=== PATIENT | female | born 1990 | race African-American/Black ===

== ENCOUNTER 2017-09-29 11:06 | Emergency (ER) | payer SELFPAY ==
[~2017-09-29] VITALS: Ht 165.1 cm; Wt 50.0 kg
[2017-09-29 11:09] VITALS: BP 121/89; PULSE 87; RESP 12; TEMP 97.9; O2SAT 100
--- NOTE | 2017-09-29 11:27 | PD ---
HPI Chief Complaint: Abdominal Pain Time Seen by Provider: 11:14 Travel History International Travel<30 days: No Contact w/Intl Traveler<30days: No Traveled to known affect area: No History of Present Illness HPI 26-year-old female presents for evaluation. She reports over the past week she has had pain in her lower abdomen, dysuria, foul-smelling urine, vaginal discharge. Pain is sharp, constant, worse when walking, somewhat improved with ibuprofen. She reports a burning sensation when she urinates as well as white vaginal discharge. Denies any vaginal itching. She is sexually active with one partner. She reports one episode of nausea and vomiting 3 days ago but none since. Denies any fevers, chills, cough, congestion, sore throat. She does report that she has had a toothache for 1 month localized to the right maxillary first premolar. She reports a history of ovarian cysts in the past. No other complaints at this time. PFSH Past Medical History ?: Not LMP: 09/11/17 Social History Alcohol Use: Yes Tobacco Use: Yes Allergies-Medications (Allergen,Severity, Reaction): Coded Allergies: No Known Allergies (Unverified , 09/29/17) Reported Meds & Prescriptions Reported Meds & Active Scripts Active Augmentin (Amoxicillin-Clavulanate) 875-125 Mg Tab 1 Tab PO BID 7 Days Doxycycline Hyclate 100 Mg Cap 100 Mg PO BID Review of Systems Except as stated in HPI: all other systems reviewed are Neg Physical Exam Narrative GENERAL: Well-developed well-nourished female no acute distress SKIN: Warm and dry. HEAD: Atraumatic. Normocephalic. EYES: Pupils equal and round. No scleral icterus. No injection or drainage. ENT: No nasal bleeding or discharge. Dental decay localized to the right maxillary first molar which is tender to percussion. There is mild gingival erythema. NECK: Trachea midline. No JVD. CARDIOVASCULAR: Regular rate and rhythm. No murmur appreciated. RESPIRATORY: No accessory muscle use. Clear to auscultation. Breath sounds equal bilaterally. GASTROINTESTINAL: Abdomen soft, some tenderness to palpation in the left lower quadrant without guarding. No right lower quadrant tenderness. Left CVA tenderness is present as well. Pelvic examination in the presence of a female nurse: There is scant white discharge in the vaginal canal. There is positive cervical motion tenderness. There is left adnexal tenderness without any palpable masses. MUSCULOSKELETAL: No obvious deformities. No edema NEUROLOGICAL: Awake and alert. No obvious cranial nerve deficits. Motor grossly within normal limits. Normal speech. Data Data Last Documented VS Vital Signs Date Time Temp Pulse Resp B/P (MAP) Pulse Ox O2 Delivery O2 Flow Rate FiO2 09/29/17 11:39 18 09/29/17 11:09 97.9 87 121/89 (100) 100 Orders Orders Complete Blood Count With Diff (09/29/17 11:22) Basic Metabolic Panel (Bmp) (09/29/17 11:22) Gc And Chlamydia Pcr (09/29/17 11:22) Wet Prep Profile (09/29/17 11:22) Urinalysis - C+S If Indicated (09/29/17 11:22) Iv Access Insert/Monitor (09/29/17 11:22) Ed Urine Pregnancytest Poc (09/29/17 11:22) Us Pelvis Comp W Doppler (09/29/17 11:38) Ketorolac Inj (Toradol Inj) (09/29/17 11:45) Urine Culture (09/29/17 11:36) Ceftriaxone Inj (Rocephin Inj) (09/29/17 12:30) Ed Discharge Order (09/29/17 12:54) Labs Laboratory Tests Test 09/29/17 11:36 White Blood Count 10.2 TH/MM3 Red Blood Count 4.30 MIL/MM3 Hemoglobin 12.1 GM/DL Hematocrit 37.3 % Mean Corpuscular Volume 86.8 FL Mean Corpuscular Hemoglobin 28.2 PG Mean Corpuscular Hemoglobin Concent 32.5 % Red Cell Distribution Width 14.9 % Platelet Count 190 TH/MM3 Mean Platelet Volume 8.8 FL Neutrophils (%) (Auto) 62.7 % Lymphocytes (%) (Auto) 24.6 % Monocytes (%) (Auto) 11.1 % Eosinophils (%) (Auto) 1.3 % Basophils (%) (Auto) 0.3 % Neutrophils # (Auto) 6.4 TH/MM3 Lymphocytes # (Auto) 2.5 TH/MM3 Monocytes # (Auto) 1.1 TH/MM3 Eosinophils # (Auto) 0.1 TH/MM3 Basophils # (Auto) 0.0 TH/MM3 CBC Comment DIFF FINAL Differential Comment Urine Color YELLOW Urine Turbidity HAZY Urine pH 5.5 Urine Specific [place] 1.019 Urine Protein NEG mg/dL Urine Glucose (UA) NEG mg/dL Urine Ketones 10 mg/dL Urine Occult Blood NEG Urine Nitrite NEG Urine Bilirubin NEG Urine Urobilinogen LESS THAN 2.0 MG/DL Urine Leukocyte Esterase LARGE Urine RBC 4 /hpf Urine WBC 88 /hpf Urine Squamous Epithelial Cells <1 /hpf Urine Bacteria RARE /hpf Urine Mucus FEW /lpf Microscopic Urinalysis Comment CULTURE INDICATED Clue Cells (Wet Prep) NONE SEEN Vaginal Trichomonas (Wet Prep) NONE SEEN Vaginal Yeast (Wet Prep) NONE SEEN Blood Urea Nitrogen 10 MG/DL Creatinine 0.61 MG/DL Random Glucose 85 MG/DL Calcium Level 9.0 MG/DL Sodium Level 138 MEQ/L Potassium Level 3.6 MEQ/L Chloride Level 106 MEQ/L Carbon Dioxide Level 24.4 MEQ/L Anion Gap 8 MEQ/L Estimat Glomerular Filtration Rate 119 ML/MIN MDM Medical Decision Making Medical Screen Exam Complete: Yes Emergency Medical Condition: Yes Medical Record Reviewed: Yes Differential Diagnosis Cystitis, pyelonephritis, pelvic inflammatory disease, vaginitis, tubo-ovarian abscess, ovarian cyst, ovarian torsion, ectopic Narrative Course 26-year-old female with 1 week of dysuria, foul-smelling urine, vaginal discharge, lower abdominal pain. On examination she has mild left CVA tenderness as well as focal tenderness in the suprapubic/left lower quadrant of the abdomen. On pelvic examination she does have positive cervical motion tenderness. Plan is for basic lab work, urinalysis, urine test, ultrasound. Urinalysis reveals large leukocytes, rare bacteria, consistent with urinary tract infection, IV Rocephin initiated. Wet prep is negative. CBC is unremarkable. BMP is unremarkable. CONCLUSION: 1. Complex cyst left ovary measures 5.1 cm. 2. Dominant follicle right ovary. 3. Small amount of pelvic free fluid. I discussed the ultrasound results with the on-call survey engineer who recommends outpatient follow-up in 6 weeks at the [facility] for repeat outpatient ultrasound imaging. Tubo-ovarian abscess is highly unlikely as the patient is not febrile, tachycardic. I discussed the findings with the patient in great detail who verbalizes understanding. She was given a copy of her ultrasound report. She is being treated for her urinary tract infection with Augmentin which will also cover for intraoral jessy in regards to her dental pain. She will be given a 14 day course of doxycycline for potential PID. I discussed signs and symptoms all towards returning to the emergency room. She is stable for discharge. Diagnosis Primary Impression: Urinary tract infection Additional Impressions: Ovarian cyst Pelvic inflammatory disease Referrals: [facility] Additional Instructions: [facility]-up at [facility], likely for repeat outpatient ultrasound imaging. Take all the antibiotics as prescribed. Follow-up with a dentist in regards to the dental pain. Take Tylenol or ibuprofen for pain. If you develop worsening abdominal pain, high fevers, intractable nausea and vomiting, return to the emergency room. Med/Other Pt SpecificInfo: Prescription(s) given Scripts Amoxicillin-Clavulanate (Augmentin) 875-125 Mg Tab 1 TAB PO BID for Infection for 7 Days, #14 TAB 0 Refills Prov: Olesya Galvin MD 09/29/17 Doxycycline Hyclate (Doxycycline Hyclate) 100 Mg Cap 100 MG PO BID for Infection, #28 CAP 0 Refills Prov: Olesya Galvin MD 09/29/17 Disposition: 01 DISCHARGE HOME Condition: Stable Patel Weathers Sep 29, 2017 11:27
[2017-09-29] MEDS ORDERED: KETOROLAC TROMETHAMINE 30 MG/ML (IVP) VIAL IV PUSH ONE (11:45)
[2017-09-29 11:51] LABS: AUTOMATED NEUTROPHIL # 6.4 TH/MM3 (1.8-7.7); BASOPHIL % 0.3 % (0.0-2.0); EOSINOPHIL # 0.1 TH/MM3 (0-0.4); EOSINOPHIL % 1.3 % (0.0-4.0); HEMATOCRIT 37.3 % (35.0-46.0); HEMOGLOBIN 12.1 GM/DL (11.6-15.3); LYMPH % 24.6 % (9.0-44.0); LYMPHOCYTE # 2.5 TH/MM3 (1.0-4.8); MEAN CELL VOLUME 86.8 FL (80.0-100.0); MEAN CORPUSCULAR HEMOGLOBIN 28.2 PG (27.0-34.0); MEAN CORPUSCULAR HGB CONC 32.5 % (32.0-36.0); MEAN PLATELET VOLUME 8.8 FL (7.0-11.0); MONO % 11.1 % (0.0-8.0); MONOCYTE # 1.1 TH/MM3 (0-0.9); NEUT % 62.7 % (16.0-70.0); PLATELET COUNT 190 TH/MM3 (150-450); RED CELL DISTRIBUTION WIDTH 14.9 % (11.6-17.2); WHITE BLOOD COUNT 10.2 TH/MM3 (4.0-11.0)
[2017-09-29 12:09] LABS: BICARBONATE 24.4 MEQ/L (21.0-32.0); CREATININE 0.61 MG/DL (0.50-1.00)
[2017-09-29 12:10] LABS: BACTERIA, URINE RARE /hpf; BILIRUBIN, URINE NEG (NEG); BLOOD, URINE NEG (NEG); GLUCOSE,URINE NEG (NEG); KETONE, URINE 10 mg/dL (NEG); MUCUS URINE FEW /lpf (OCC); NITRITE,URINE NEG (NEG); PH, URINE 5.5 (5.0-8.5); SQUAMOUS EPITHELIAL CELL URINE <1 /hpf (0-5); URINE COLOR YELLOW (YELLW/STRAW); URINE LEUKOCYTE ESTERASE LARGE (NEG)
[2017-09-29] MEDS ORDERED: cefTRIAXone INJ 1,000 MG in SODIUM CHLORIDE 0.9% INJ 100 ML IV ONE (12:30)
--- NOTE | 2017-09-29 12:38 | RADRPT ---
EXAM DATE/TIME: 09/29/2017 12:02 [facility] COMPARISON: No previous studies available for comparison. INDICATIONS : Pelvic pain. MEDICAL HISTORY : None. SURGICAL HISTORY : None. ENCOUNTER: Initial ACUITY: 1 week PAIN SCORE: 9/10 LOCATION: Bilateral pelvis MEASUREMENTS: UTERUS: 9.1 x 6.0 x 4.4 cm ENDOMETRIAL STRIPE: 13 mm RIGHT OVARY: 2.0 x 1.6 x 1.3 cm LEFT OVARY: 4.4 x 6.2 x 4.0 cm FINDINGS: UTERUS: The myometrium has homogeneous echotexture without mass. RIGHT OVARY: Dominant follicle measures 12 x 13 x 10 mm. Normal flow. LEFT OVARY: Complex lesion containing septations and internal echoes measuring 46 x 51 x 47 mm. Normal flow. MISCELLANEOUS: Small amount free fluid. CONCLUSION: 1. Complex cyst left ovary measures 5.1 cm. 2. Dominant follicle right ovary. 3. Small amount of pelvic free fluid. Shade Mckinley MD on September 29, 2017 at 12:35 Board Certified Radiologist. This report was verified electronically.
[2017-09-29] MEDS ORDERED: AUGM875T3 PO (12:49)
[2017-09-29] MEDS ORDERED: DOXY100C PO (12:49)
== END 2017-09-29 13:08 | disposition home or self-care (01) ==
LOC: NEPC 11:06
DX: N39.0 Urinary tract infection, site not specified (principal); B96.20 Unspecified Escherichia coli [E. coli] as the cause of diseases classified elsewhere; N83.202 Unspecified ovarian cyst, left side; N73.9 Female pelvic inflammatory disease, unspecified; R11.2 Nausea with vomiting, unspecified; Z72.0 Tobacco use; Z79.899 Other long term (current) drug therapy
CPT/HCPCS: 76856; 80048; 81001; 84703; 85025; 87077; 87086; 87186; 87210; 87491; 87591; 93975; 96374; 96375; 99284; J0696; J1885

== ENCOUNTER 2017-10-01 17:49 | Emergency (ER) | payer SELFPAY ==
[~2017-10-01] VITALS: Ht 167.6 cm; Wt 50.9 kg
[~2017-10-01 17:49] MED LIST: AUGM875T3 PO; DOXY100C PO
[2017-10-01 17:50] VITALS: BP 152/95; PULSE 90; RESP 16; TEMP 99.4; O2SAT 98
--- NOTE | 2017-10-01 18:10 | PD ---
HPI Chief Complaint: Abnormal Results Time Seen by Provider: 18:07 Travel History International Travel<30 days: No Contact w/Intl Traveler<30days: No Traveled to known affect area: No History of Present Illness HPI 26-year-old female presents to emergency department for gonorrhea. Patient was seen and evaluated and then called by our emergency room staff with results to her PCR test done yesterday. Patient reports vaginal discharge. No significant pain. No fever or chills. No other symptoms at this time. PFSH Past Medical History Medical History: Denies Significant Hx Social History Alcohol Use: Yes Tobacco Use: Yes Allergies-Medications (Allergen,Severity, Reaction): Coded Allergies: No Known Allergies (Unverified , 09/29/17) Reported Meds & Prescriptions Reported Meds & Active Scripts Active Augmentin (Amoxicillin-Clavulanate) 875-125 Mg Tab 1 Tab PO BID 7 Days Doxycycline Hyclate 100 Mg Cap 100 Mg PO BID Review of Systems Except as stated in HPI: all other systems reviewed are Neg Physical Exam Narrative GENERAL: Well-nourished, well-developed female patient in no acute distress. SKIN: Focused skin assessment warm/dry. HEAD: Normocephalic. EYES: No scleral icterus. No injection or drainage. NECK: Supple, trachea midline. No JVD or lymphadenopathy. CARDIOVASCULAR: Regular rate RESPIRATORY: No accessory muscle use. GASTROINTESTINAL: Abdomen nondistended. MUSCULOSKELETAL: No cyanosis, or edema. BACK: without obvious deformity. Data Data Last Documented VS Vital Signs Date Time Temp Pulse Resp B/P (MAP) Pulse Ox O2 Delivery O2 Flow Rate FiO2 10/01/17 18:38 10/01/17 17:50 99.4 90 16 98 Room Air Orders Orders Ceftriaxone Inj (Rocephin Inj) (10/01/17 18:15) Lidocaine 1% Inj (50 Ml) (Xylocaine 1% I (10/01/17 18:15) Azithromycin (Zithromax) (10/01/17 18:15) Ed Discharge Order (10/01/17 18:12) [facility] Medical Decision Making Medical Screen Exam Complete: Yes Emergency Medical Condition: Yes Medical Record Reviewed: Yes Differential Diagnosis Gonorrhea versus PID versus UTI Narrative Course 26-year-old female presents to the emergency department for treatment of gonorrhea. She has no acute symptoms. Patient is given azithromycin and IM Rocephin. She is counseled on safe sex practices. I have advised her that all partners will need to be treated. She verbalizes understanding. She'll be discharged at this time. Diagnosis Primary Impression: Gonorrhea Referrals: [facility] Patient Instructions: General Instructions, Safe Sex (ED) Additional Instructions: FOLLOW UP WITH A PRIMARY CARE PROVIDER UTILIZED CONDOM PROPHYLAXIS YOUR PARTNERS WILL NEED TO BE TREATED WELL RETURN TO ED WITH ACUTE WORSENING OF SYMPTOMS Med/Other Pt SpecificInfo: No Change to Meds Disposition: 01 DISCHARGE HOME Condition: Stable Bridget Toledo Oct 01, 2017 18:10
[2017-10-01] MEDS ORDERED: AZITHROMYCIN 250 MG TAB PO ONE (18:15)
[2017-10-01] MEDS ORDERED: cefTRIAXone 250 MG VIAL IM ONE (18:15)
[2017-10-01] MEDS ORDERED: LIDOCAINE HCL 1% 50 ML VIAL XX ONE (18:15)
== END 2017-10-01 18:39 | disposition home or self-care (01) ==
LOC: NED 17:49
DX: A54.9 Gonococcal infection, unspecified (principal)
CPT/HCPCS: 96372; 99283; J0696